=== PATIENT | female | born 1970 | race Caucasian/White ===

== ENCOUNTER → 2025-02-18 | Outpatient (CLI) | payer OTHER, SELFPAY ==
--- NOTE | 2025-02-18 16:10 | XR_ITS ---
Examination: Bilateral hands, 5 views. Technique: Bilateral AP hands single view, right and left oblique, right and left lateral hand still 5 views Date and time of exam: February 18, 2025 1612 hours INDICATIONS: Hand pain beginning 2 weeks ago Findings: Mild juxta-articular bone demineralization No fracture or dislocation involving either hand No erosive or other significant arthritic change involving either hand No cortical bone destruction No foreign bodies No avascular necrosis IMPRESSION: No erosive or other significant arthritic change involving either hand
--- NOTE | 2025-02-18 16:10 | XR_ITS ---
EXAMINATION: Cervical spine, 5 views Technique: Cervical spine AP, AP odontoid, lateral, bilateral obliques, 5 views Exam date and time: February 18, 2025 1612 hours INDICATIONS: Neck pain beginning 2 months ago. FINDINGS: Adequate alignment cervical vertebral bodies. No cervical fracture. Intact odontoid. Mild cervical spondylosis. Early degenerative disc disease C6-C7 No significant neural foraminal stenosis IMPRESSION: Early degenerative disc disease C6-C7
--- NOTE | 2025-02-18 16:10 | XR_ITS ---
Examination: Right elbow 3 views Technique: Elbow AP, oblique, lateral 3 views Exam date and time: February 18, 2025 1612 hours INDICATIONS: Right elbow pain 2 months FINDINGS: No fracture or dislocation No significant arthritic change. No elbow effusion IMPRESSION: No fracture or arthritic change.
== END | disposition home or self-care (01) ==
PROVIDERS: PCP Family Medicine; Referring Provider Family Medicine; Visit Provider Family Medicine
DX: M79.642 Pain in left hand (principal); M79.641 Pain in right hand; M50.323 Other cervical disc degeneration at C6-C7 level; M25.521 Pain in right elbow
CPT/HCPCS: 72050; 73080; 73130